=== PATIENT | female | born 1960 | race Caucasian/White ===

== ENCOUNTER 2019-10-18 11:23 | Emergency (ER) | payer OTHER ==
--- NOTE | 2019-10-18 12:30 | ER Document Report ---
ED General - General Chief Complaint: Headache Stated Complaint: HEADACHE Time Seen by Provider: 10/18/19 11:53 Primary Care Provider: BRIAN KING [Primary Care Provider] - Follow up as needed - HPI Notes: Chief complaint: Headache History of present illness: Previously healthy 59-year-old female taking no regular medications seen at urgent care for severe headache intermittently over past several days associated with sinus pressure left-sided facial pressure and nasal congestion and subsequently sent here for further evaluation. They also noted that her blood pressure was significantly elevated. Patient says this is been "up-and-down" in the past but she is never actually been treated for hypertension. She denies any history of migraine headaches. She denies any focal neurologic symptoms, visual changes or difficulty with speaking or swallowing. She has no problems with ambulation. Patient says that the headache is left occipital and intermittently sharp and throbbing and also associated with left facial pressure. This was particularly bothersome last night was about an 8/10 intensity. She says it is currently about a 2/10 intensity. She has not taken any zzuo-hfh-[id number] medications for this. They performed rapid COVID test at urgent care and this was negative. She has no known exposure to COVID. She denies any fever. She is not coughing. Smokes 1 pack of cigarettes per day for many years. - Related Data Allergies/Adverse Reactions: iodine Allergy (Verified 10/18/19 12:07) Past Medical History - General Information source: Patient, [facility] Records - Social History Smoking Status: Current Every Day Smoker Frequency of alcohol use: None Drug Abuse: None Lives with: Family Family History: Reviewed & Not Pertinent Patient has homicidal ideation: No - Past Medical History Cardiac Medical History: Reports: None Pulmonary Medical History: Reports: None EENT Medical History: Reports: Other - Sinusitis Neurological Medical History: Denies: Hx Cerebrovascular Accident, Hx Migraine Endocrine Medical History: Reports: None Malignancy Medical History: Reports: None Past Surgical History: Reports: Hx Hysterectomy, Hx Orthopedic Surgery - right rotator cuff Review of Systems - Review of Systems Notes: Constitutional: Negative for fever. HENT: As per HPI. Eyes: Negative for visual changes. Cardiovascular: Negative for chest pain. Respiratory: Negative for shortness of breath. Gastrointestinal: Negative for abdominal pain, vomiting or diarrhea. Genitourinary: Negative for dysuria. Musculoskeletal: Negative for back pain. Skin: Negative for rash. Neurological: As per HPI. 10 point ROS negative except as marked above and in HPI. Physical Exam - Vital signs Vitals: Temp Pulse Resp BP Pulse Ox 98.7 F 70 18 198/98 H 98 10/18/19 11:29 10/18/19 11:29 10/18/19 11:29 10/18/19 11:29 10/18/19 11:29 - Notes Notes: GENERAL: Slender female approximately stated age appearing in no acute distress. SKIN: Good turgor no rashes. HEAD: Normocephalic atraumatic. Prominent tenderness to percussion left frontal and maxillary areas. She also has some mild tenderness over the occipital area of the scalp on the left. Temporal artery pulsations are normal and symmetrical and there is no palpable tenderness, redness or swelling appreciated. EYES: PERRLA. EOMI. Conjunctivae and sclerae clear. EARS: CANALS AND TMS CLEAR. NOSE: CLEAR. MOUTH: Moist mucosa. Good dentition. No stridor or edema. No drooling. NECK: Supple. No masses or thyromegaly. No adenopathy. Carotids 2+ without bruits. No JVD. BACK: Symmetrical without tenderness. CHEST: Respirations unlabored. Breath sounds clear and symmetrical. HEART: Regular rhythm. No murmur gallop or rub. ABDOMEN: Soft nontender without masses, organomegaly or rebound. Bowel sounds normally active. No bruits. GENITALIA: Deferred. EXTREMITIES: No edema. No calf tenderness. Cap refill less than 1.5 seconds. Dorsalis pedis and posterior tibial pulses 3+ and symmetrical. NEUROLOGICAL: GCS 15. Alert and oriented x3. Normal gait. Fluent speech. Cranial nerves II through XII intact. Sensorimotor and cerebellar normal. Normal tone. PSYCHIATRIC: Appropriate affect. Course - Re-evaluation Re-evalutation: 10/18/19 15:33 Patient was noted to have some tenderness to percussion of the maxillary and fr ontal sinus on the left. She also says she has had pressure sensation in her face. Her CT however did not show any obvious sinus abnormality. There were no other abnormalities on the noncontrast head CT per radiologist. Patient had no examination findings to suggest temporal arteritis. Her sed rate was normal at 8. Her white count was normal. Her chemistry profile was normal. Blood pressure was quite elevated. She says this is been "up-and-down" in the past. I gave her some clonidine here with slight lowering of blood pressure. Her headache is currently resolved. I advised patient stop smoking. I am going to start her on some oral antihypertensive medication and recommend outpatient follow-up with PMD. She may take lffw-xgf-atdgijm analgesics as needed for her headache. Findings, clinical impression and plan of treatment have been discussed with patient/family. Understanding of current findings and recommendations has been acknowledged by them and there is agreement regarding disposition and follow-up. - Vital Signs Vital signs: Temp Pulse Resp BP Pulse Ox 98.6 F 68 16 173/86 H 100 10/18/19 14:02 10/18/19 14:02 10/18/19 14:02 10/18/19 15:09 10/18/19 14:02 - Laboratory Result Diagrams: 10/18/19 12:42 10/18/19 12:42 Laboratory results interpreted by me: 10/18/19 10/18/19 10/18/19 12:42 12:42 12:42 Hgb 15.9 H Carbon Dioxide 32 H Calcium 10.3 H Urine Blood SMALL H - Diagnostic Test Radiology reviewed: Reports reviewed - Normal noncontrast head CT per radiol ogist. - EKG Interpretation by Me Additional EKG results interpreted by me: 10/18/19 15:28 Twelve-lead EKG from 1254 hrs. reviewed contemporaneously by me. Indication for study: Hypertension. Sinus bradycardia. Rate 52. Intervals normal. Normal QRS axis of +[address]/T wave changes present. Left atrial abnormality No prior EKG for comparison. Impression: Left atrial abnormality and sinus bradycardia. Discharge - Discharge Clinical Impression: Essential hypertension Headache Qualifiers: Headache type: unspecified Headache chronicity pattern: episodic headache Condition: Stable Disposition: HOME, SELF-CARE Prescriptions: Lisinopril/Hydrochlorothiazide [Lisinopril-Hctz 10-12.5 mg Tab] 1 each PO DAILY #30 tablet Forms: Smoking Cessation Education, Elevated Blood Pressure Referrals: LOCALMD,NO [Primary Care Provider] - Follow up as needed [facility] [Provider Group] - Follow up as needed
--- NOTE | 2019-10-18 12:45 | RADIOLOGY REPORT (SQ) ---
EXAM DESCRIPTION: CHEST SINGLE VIEW IMAGES COMPLETED DATE/TIME: 10/18/2019 12:35 pm REASON FOR STUDY: HTN COMPARISON: None. NUMBER OF VIEWS: One view. TECHNIQUE: Single frontal radiographic view of the chest acquired. LIMITATIONS: None. FINDINGS: LUNGS AND PLEURA: No opacities, masses or pneumothorax. No pleural effusion. Attenuated bl ood vessels and flattened anibal-diaphragms. MEDIASTINUM AND HILAR STRUCTURES: No masses. Contour normal. HEART AND VASCULAR STRUCTURES: Heart normal in size. Normal vasculature. BONES: No acute findings. HARDWARE: None in the chest. OTHER: No other significant finding. IMPRESSION: COPD. NO ACUTE RADIOGRAPHIC FINDING IN THE CHEST. TECHNICAL DOCUMENTATION: JOB ID: [id number] 2010 [employer]- All Rights Reserved Reading location - IP/workstation name: [email or web address]
[2019-10-18 13:03] LABS: APPEARANCE,URINE SLIGHTLY-CLOUDY; BILIRUBIN,URINE NEGATIVE (NEGATIVE); COLOR,URINE YELLOW; GLUCOSE, URINE NEGATIVE (NEGATIVE); KETONES,URINE NEGATIVE (NEGATIVE); PROTEIN,URINE NEGATIVE (NEGATIVE); UROBILINOGEN,URINE NEGATIVE mg/dL (<2.0)
[2019-10-18 13:16] LABS: ABSOLUTE BASOPHILS # (AUTO) 0.1 10^3/uL (0.0-0.2); ABSOLUTE EOSINOPHILS # (AUTO) 0.1 10^3/uL (0.0-0.6); ABSOLUTE LYMPHOCYTES (AUTO) 2.5 10^3/uL (0.5-4.7); ABSOLUTE MONOCYTES (AUTO) 0.4 10^3/uL (0.1-1.4); ABSOLUTE NEUT (AUTO) 3.3 10^3/uL (1.7-8.2); BASOPHILS % (AUTO) 0.8 % (0-2); EOSINOPHILS % (AUTO) 1.2 % (0-6); HEMATOCRIT 45.9 % (36.0-47.0); HEMOGLOBIN 15.9 g/dL (12.0-15.5); LYMPHOCYTES % (AUTO) 39.5 % (13-45); MEAN CORPUSCULAR HEMOGLOBIN 33.1 pg (27.0-33.4); MEAN CORPUSCULAR HGB CONC 34.5 g/dL (32.0-36.0); MEAN CORPUSCULAR VOLUME 96 fl (80-97); MONOCYTES % (AUTO) 6.8 % (3-13); PLATELET COUNT 219 10^3/uL (150-450); SEGMENTED NEUTROPHILS % (AUTO) 51.7 % (42-78); TOTAL CELLS COUNTED % (AUTO) 100 %; WHITE BLOOD COUNT 6.4 10^3/uL (4.0-10.5)
--- NOTE | 2019-10-18 13:20 | RADIOLOGY REPORT (SQ) ---
EXAM DESCRIPTION: CT HEAD WITHOUT IMAGES COMPLETED DATE/TIME: 10/18/2019 1:03 pm REASON FOR STUDY: headache COMPARISON: None. TECHNIQUE: Axial images acquired through the brain without intravenous contrast. Images reviewed wi th bone, brain and subdural windows. Additional sagittal and coronal reconstructions were generated. Images stored on PACS. All CT scanners at this facility use dose modulation, iterative reconstruction, and/or weight based d osing when appropriate to reduce radiation dose to as low as reasonably achievable (ALARA). [facility]: Dose Right [facility]: CareDose [facility]: Dose Right [facility]: Teradose 4D [facility]: [employer] RADIATION DOSE: CT Rad equipment meets quality standard of care and radiation dose reduction techniq ues were employed. CTDIvol: 53.2 mGy. DLP: 1070 mGy-cm. mGy. LIMITATIONS: None. FINDINGS: VENTRICLES: Normal size and contour. CEREBRUM: No masses. No hemorrhage. No midline shift. No evidence for acute infarction. Normal gra y/white matter differentiation. No areas of low density in the white matter. CEREBELLUM: No masses. No hemorrhage. No alteration of density. No evidence for acute infarction. EXTRAAXIAL SPACES: No fluid collections. No masses. ORBITS AND GLOBE: No intra- or extraconal masses. Normal contour of globe without masses. CALVARIUM: No fracture. PARANASAL SINUSES: No fluid or mucosal thickening. SOFT TISSUES: No mass or hematoma. OTHER: No other significant finding. IMPRESSION: NORMAL BRAIN CT WITHOUT CONTRAST. EVIDENCE OF ACUTE STROKE: NO. COMMENT: Quality ID # [id number]: Final reports with documentation of one or more dose reduction techniques (e.g., Automated exposure control, adjustment of the mA and/or kV according to patient size, use of iterative reconstruction technique) TECHNICAL DOCUMENTATION: JOB ID: [id number] 2010 [employer]- All Rights Reserved Reading location - IP/workstation name: [email or web address]
[2019-10-18 13:30] LABS: ALBUMIN 4.8 g/dL (3.5-5.0); ALKALINE PHOSPHATASE 62 U/L (38-126); ANION GAP 10 (5-19); ASPARTATE AMINO TRANSFERASE 23 U/L (14-36); BILIRUBIN,DIRECT 0.3 mg/dL (0.0-0.4); BILIRUBIN,TOTAL 0.7 mg/dL (0.2-1.3); BLOOD UREA NITROGEN 15 mg/dL (7-20); CALCIUM 10.3 mg/dL (8.4-10.2); CARBON DIOXIDE 32 mmol/L (22-30); CHLORIDE 101 mmol/L (98-107); GLUCOSE 104 mg/dL (75-110); POTASSIUM 4.3 mmol/L (3.6-5.0); TOTAL PROTEIN 7.9 g/dL (6.3-8.2)
[2019-10-18] MEDS ORDERED: CLONIDINE HCL 0.1 MG TABLET PO ONE (14:07)
[2019-10-18 15:35] VITALS: BP 179/92
--- NOTE | 2019-10-19 08:45 | EKG REPORT ---
SEVERITY:- ABNORMAL ECG - SINUS BRADYCARDIA HILARIO, CONSIDER BIATRIAL ABNORMALITIES : Confirmed by: Addison Maradiaga MD 19-Oct-2019 08:44:23
== END 2019-10-18 16:10 | disposition home or self-care (01) ==
LOC: ER 11:23
DX: R51 Headache (principal); I10 Essential (primary) hypertension; R09.81 Nasal congestion; F17.200 Nicotine dependence, unspecified, uncomplicated
CPT/HCPCS: 36415; 70450; 71045; 80053; 81001; 85025; 85652; 93005; 93010; 99285